=== PATIENT | female | born 1985 | race Caucasian/White ===

== ENCOUNTER 2024-11-03 13:23 | Inpatient (IN) | payer OTHER ==
[2024-11-03] VITALS (25 sets, daily range): BP systolic 126–154; BP diastolic 80–103
[~2024-11-03] VITALS: Ht 170.2 cm; Wt 66.1 kg
[2024-11-03] MEDS ORDERED: LABE100 PO (13:49)
[2024-11-03 14:19] LABS: BASOPHILS PERCENT AUTO 1 % (0-2); EOSINOPHILS ABSOLUTE AUTO 0.06 K/mm3 (0.00-0.68); EOSINOPHILS PERCENT AUTO 1 % (0-6); IMMATURE GRAN ABSOLUTE AUTO 0.03 K/mm3 (0.00-0.10); IMMATURE GRAN PERCENT AUTO 0 % (0-1); LYMPHOCYTES ABSOLUTE AUTO 1.34 K/mm3 (0.84-5.20); LYMPHOCYTES PERCENT AUTO 14 % (21-46); MONOCYTES ABSOLUTE AUTO 0.86 K/mm3 (0.16-1.47); MONOCYTES PERCENT AUTO 9 % (4-13); Mean Corpuscular HGB 29.8 pg (26.0-34.0); Mean Corpuscular HGB Conc 34.3 g/dL (31.5-36.5); Mean Corpuscular Volume 87 fL (80-100); Mean Platelet Volume 10.9 fL (9.1-12.4); NEUTROPHILS PERCENT AUTO 75 % (41-73); Platelet Count 386 K/mm3 (150-400); RDW Coefficient Variation 14.3 % (11.7-14.2); RDW Standard Deviation 44.1 fL (35.1-46.3); Red Blood Cell Count 4.03 M/mm3 (3.80-5.20); White Blood Cell Count 9.69 K/mm3 (4.00-11.30)
[2024-11-03 14:43] LABS: Albumin, Blood 2.4 g/dL (3.4-5.0); Albumin/Globulin Ratio 0.7 (0.8-1.8); Bilirubin, Total 0.5 mg/dL (0.1-1.0); Bun/Creatinine Ratio 11.9 (12.0-20.0); Calcium, Blood 8.6 mg/dL (8.5-10.1); Creatinine, Blood 3.52 mg/dL (0.40-1.00); Globulin, Blood 3.3 g/dL (2.2-4.0); Potassium, Blood 4.4 mmol/L (3.5-5.5); Total Protein, Blood 5.7 g/dL (6.4-8.2)
[2024-11-03] MEDS ORDERED: NS 1,000 ML IV SCH (14:50)
[2024-11-03] MEDS ORDERED: CefTRIAXone Sodium 1,000 MG in NS 100 ML IV ONE (15:00)
[2024-11-03] MEDS ORDERED: FLU VACC TS2024-25(6MOS UP)/PF 45 MCG/0.5 ML SYRINGE IM SCH (15:55)
[2024-11-03] MEDS ORDERED: Labetalol HCL 5 MG/ML 4ML Injection (Single Dose) IV ONE (16:00)
[2024-11-03] MEDS ORDERED: Labetalol HCL 5 MG/ML 20MLVIAL IV PRN (16:10)
[2024-11-03] MEDS ORDERED: HydrALAZINE HCl 20 MG / ML 1ML Vial IV PRN ×2 (16:15→20:00)
[2024-11-03] MEDS ORDERED: Labetalol HCL 5 MG/ML 4ML Injection (Single Dose) IV PRN (16:20)
[2024-11-03] MEDS ORDERED: NiCARdipine HCL 50 MG in NS 250 ML IV SCH (16:35)
[2024-11-03] MEDS ORDERED: Clopidogrel Bisulfate 300 MG TABLET PO ONE (16:55)
[2024-11-03] MEDS ORDERED: Carvedilol 3.125 MG Tab PO SCH (17:00)
[2024-11-03] MEDS ORDERED: Aspirin 325 MG Tab PO ONE (17:00)
[2024-11-03] MEDS ORDERED: Atorvastatin 40 MG Tab PO SCH (17:00)
[2024-11-03] MEDS ORDERED: Azithromycin 500 MG in NS 250 ML IV SCH (17:00)
[2024-11-03 17:06] LABS: Base Excess Venous -7.9 mmol/L; Bicarbonate Venous 19.1 mmol/L (24.0-30.0); PCO2 Venous 25.8 mmHg (38-42); pH Blood Venous 7.42 (7.34-7.37)
[2024-11-03 18:11] LABS: Anti-Xa UFH, PHA Monitoring <0.10 IU/mL; International Normalized Ratio 0.98; Prothrombin Time Results 10.5 Sec (9.7-11.5)
--- NOTE | 2024-11-03 18:30 | NUR ---
[place] of care: Received patient from ED. Alert & oriented. Complaining of back pain of 10 - prn roxicodone ordered & administered. In NSR. SBP in 150s on 7.5 mg/hr of nicardipine. On room air with stable oxygen saturations. Need sputum sample. Pt aware but denies productive cough. Voided 350 clear yellow urine on arrival. Sample sent to lab. Will then start 24 hour urine sample per orders. NPO. Skin intact other than redness to lower back that is blanchable. PIV x2 in place. Will continue to monitor.
[2024-11-03] MEDS ORDERED: OxyCODONE HCL 5 MG TAB PO PRN (18:35)
[2024-11-03] MEDS ORDERED: Acetaminophen 325 MG TABLET PO PRN (18:35)
[2024-11-03 18:37] LABS: Source, Urine Clean Catch
[2024-11-03 18:39] LABS: Appearance, Urine Clear (Clear); Bilirubin, Urine Neg (Neg); Blood, Urine 1+ (Neg); Color, Urine Yellow (P-Yellow); Glucose Qualitative, Urine Neg (Neg); Ketones, Urine Neg (Neg); Leukocyte Esterase, Urine Neg (Neg); Nitrite, Urine Neg (Neg); Protein, Urine 4+ (Neg); Specific Gravity, Urine 1.015 (1.003-1.022); Urobilinogen, Urine NORM (Normal)
[2024-11-03] MEDS ORDERED: Bumetanide 0.25 MG/ML 10ML Vial IV ONE (18:40)
[2024-11-03 18:51] LABS: Bacteria Few /hpf; Squamous Epithelial Cells Few /hpf (Few); White Blood Cells, Urine 0-2 /hpf (0-5)
[2024-11-03 18:58] LABS: U Amphetamine Screen Not Detected; U Barbituate Screen Not Detected; U Benzodiazapine Screen Not Detected; U Buprenorphine Screen Not Detected; U Cannabinoids Screen Not Detected; U Cocaine Screen Not Detected; U Methadone Screen Not Detected; U Methamphetamine Screen Not Detected; U Opiates Screen Not Detected; U Oxycodone Screen Not Detected; U Phencyclidine Screen Not Detected
[2024-11-03] MEDS ORDERED: Lactobacil 2-S.Thermo-Bifido 1 1 Cap PO SCH (21:00)
[2024-11-03] MEDS ORDERED: Sodium Bicarbonate 650 MG Tab PO SCH (21:00)
[2024-11-03] MEDS ORDERED: CloNIDine 0.1 MG Tab PO SCH (21:00)
[2024-11-03 21:14] LABS: Bun/Creatinine Ratio 11.5 (12.0-20.0); Calcium, Blood 8.3 mg/dL (8.5-10.1); Creatinine, Blood 3.49 mg/dL (0.40-1.00); Potassium, Blood 3.7 mmol/L (3.5-5.5)
--- NOTE | 2024-11-03 22:14 | NUR ---
[place] OF CARE ASSUMED CARE OF PATIENT AT 1900, BEDSIDE SHIFT REPORT RECEIVED FROM LUIZ RN. PT RESTING IN BED, ALERT AND ORIENTED. PT ANSWERS QUESTIONS APPROPRIATLEY, FOLLOWS DIRECTION WHEN PROMPTED AND IS ABLE TO MAKE HER NEEDS KNOWN. PT AMBULATES TO BEDSIDE COMMODE TO VOID WITH NURSE ASSIST. PT WEAK. MOVES EXTREMITIES EQUALLY BILATERALLY. PT COMPLAINING OF 5/10 PAIN IN HER BACK, STATES ITS IMPROVED. HR 70-90'S SINUS, MAP >65. NICARDIPINE INFUSING AT 7.5MG/HR AT START OF SHIFT, NOW ON SB, SEE FLOWSHEET FOR TITRATIONS. SBP GOAL OF 160-[address] GRACIA. CURRENT SBP 120-140'S. PT DENIES CP/PRESSURE. PT ON RA, OXYGEN SATURATION >95%. ABDOMEN SOFT, BOWEL TONES ACTIVE THROUGHOUT, PT DENIES N/V. PT AMBULATES TO COMMODE TO VOID. PIV IN PLACE TO RFA AND LAC SL. BED IN LOWEST POSIITON, CALL LIGHT WITHIN REACH, CARE CONTINUES.
[2024-11-04] VITALS (46 sets, daily range): BP systolic 124–176; BP diastolic 74–133
[2024-11-04 03:44] LABS: BASOPHILS ABSOLUTE AUTO 0.09 K/mm3 (0.00-0.23); BASOPHILS PERCENT AUTO 1 % (0-2); EOSINOPHILS ABSOLUTE AUTO 0.29 K/mm3 (0.00-0.68); EOSINOPHILS PERCENT AUTO 4 % (0-6); Hematocrit 31.5 % (33.0-51.0); Hemoglobin 10.4 g/dL (11.5-16.0); IMMATURE GRAN ABSOLUTE AUTO 0.02 K/mm3 (0.00-0.10); IMMATURE GRAN PERCENT AUTO 0 % (0-1); LYMPHOCYTES ABSOLUTE AUTO 1.47 K/mm3 (0.84-5.20); LYMPHOCYTES PERCENT AUTO 22 % (21-46); MONOCYTES PERCENT AUTO 12 % (4-13); Mean Corpuscular HGB 29.4 pg (26.0-34.0); Mean Corpuscular Volume 89 fL (80-100); Mean Platelet Volume 10.8 fL (9.1-12.4); NEUTROPHILS ABSOLUTE AUTO 4.12 K/mm3 (1.96-9.15); NEUTROPHILS PERCENT AUTO 61 % (41-73); Platelet Count 317 K/mm3 (150-400); RDW Coefficient Variation 14.1 % (11.7-14.2); RDW Standard Deviation 45.4 fL (35.1-46.3); Red Blood Cell Count 3.54 M/mm3 (3.80-5.20); White Blood Cell Count 6.79 K/mm3 (4.00-11.30)
[2024-11-04 04:11] LABS: Magnesium, Blood 1.8 mg/dL (1.6-2.4); Uric Acid, Blood 9.6 mg/dL (2.6-6.0)
[2024-11-04 04:17] LABS: Alanine Aminotransfer (ALT/SGP 22 U/L (12-78); Albumin/Globulin Ratio 0.7 (0.8-1.8); Alk Phos 59 U/L (50-136); Anion Gap 10 mmol/L (3-11); Aspartate Aminotrans (AST/SGOT 21 U/L (12-37); Bilirubin, Direct <0.1 mg/dL (0.0-0.3); Bilirubin, Indirect Unable to Calculate mg/dL (0.1-0.7); Bilirubin, Total 0.2 mg/dL (0.1-1.0); Blood Urea Nitrogen 39 mg/dL (8-24); Bun/Creatinine Ratio 11.2 (12.0-20.0); CO2, Blood 23 mmol/L (21-32); Calcium, Blood 7.7 mg/dL (8.5-10.1); Chloride, Blood 105 mmol/L (98-108); Creatinine, Blood 3.49 mg/dL (0.40-1.00); Globulin, Blood 2.7 g/dL (2.2-4.0); Glomerular Filtration Rate 16 (60-); Glucose, Blood 112 mg/dL (70-99); Phosphorus, Blood 5.4 mg/dL (2.5-4.9); Potassium, Blood 3.4 mmol/L (3.5-5.5); Sodium, Blood 135 mmol/L (136-145); Total Protein, Blood 4.7 g/dL (6.4-8.2)
[2024-11-04] MEDS ORDERED: Potassium Chloride 10 Meq Tablet SA PO ONE (04:50)
--- NOTE | 2024-11-04 06:14 | NUR ---
SHIFT SUMMARY NO ACUTE CHANGES THIS SHIFT. PT CONITNUES TO REST IN BED, SLEEPING BUT AROUSABLE. PT ORIENTED X4, ANSWERS QUESTIONS APPROPRIATELY, FOLLOWS DIRECTION WHEN PROMPTED AND IS ABLE TO MAKE HER NEEDS KNOWN. PT MOVES EXTREMITIES EQUALLY BILATERALLY, AMBULATES TO BEDSIDE COMMODE TO VOID WITH NURSE ASSIST. PT COMPLAINING OF PAIN IN HER BACK AND RIGHT SIDE, MEDCIATED PER EMAR WITH GOOD EFFECT. HR 60-90'S SINUS, SBP 120-160'S, NICARDIPINE HAS REMAINED OFF THIS SHIFT, SEE FLOWSHEET FOR TITRATIONS. PT DENIES CP/PRESSURE. PT PLACED ON 2LPM VIA NC WHILE SLEPING, OXYGEN SATURATION >95%. ABDOMEN SOFT, BOWEL TONES ACTUIVE THROUGHOUT. PT AMBULATES TO BEDSIDE COMMODE TO VOID, 24H URINE ONGOING. PIV IN PLACE TO RFA AND LAC SL. BED IN LOWEST POSITION, CALL LIGHT WITHIN REACH, CARE CONTINUES.
[2024-11-04] MEDS ORDERED: Heparin Sodium,Porcine 5,000 UNIT/0.5 ML SDV SC SCH (08:00)
--- NOTE | 2024-11-04 08:00 | NUR ---
[place] of care: Alert & oriented. In NSR. Targeting SBP between 160-[address] 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 On room air with clear lung sounds & stable O2 sats. Good PO intake. Voiding. PIV x2 in place. Will continue to monitor.
[2024-11-04] MEDS ORDERED: CefTRIAXone Sodium 1,000 MG in NS 100 ML IV SCH (09:00)
[2024-11-04] MEDS ORDERED: Bumetanide 1 MG Tab PO SCH (09:00)
[2024-11-04] MEDS ORDERED: Aspirin 81 MG Chew PO SCH (09:00)
[2024-11-04] MEDS ORDERED: Potassium Chloride 10 Meq Tablet SA PO SCH (09:00)
[2024-11-04] MEDS ORDERED: Bumetanide 0.25 MG/ML 4ML ViaL IV SCH (09:00)
[2024-11-04] MEDS ORDERED: Enoxaparin 30 MG/0.3 ML SYR SC SCH (09:00)
[2024-11-04] MEDS ORDERED: Clopidogrel Bisulfate 75 MG Tab PO SCH (09:00)
[2024-11-04] MEDS ORDERED: Heparin Sodium 5000 Units/ML 1ML MDV IV ONE ×2 (11:50→20:10)
[2024-11-04] MEDS ORDERED: Heparin Sodium,Porcine/0.5 NS 500 ML IV SCH (11:50)
--- NOTE | 2024-11-04 18:06 | NUR ---
Shift summary: Remains A&O. In NSR. SBP between 160-[address] Schneider's orders but DBP has been elevated above [address] Petty & he states he will add something prn. On room air with clear lung sounds. Voided 1200 cc. No BM. Taking good PO. PIV x2. Heparin gtt infusing - see emar for details. Will continue to monitor.
[2024-11-04] MEDS ORDERED: HydrALAZINE HCl 20 MG / ML 1ML Vial IV PRN (18:20)
[2024-11-04] MEDS ORDERED: Dose Adjust by Pharmacy XX STA (20:09)
[2024-11-04] MEDS ORDERED: Labetalol HCL 100 MG TAB PO SCH ×2 (21:00)
[2024-11-04 22:07] LABS: Protein, Urine Quantitative 105.4 mg/dL (0.0-11.9)
[2024-11-05] VITALS (12 sets, daily range): BP systolic 146–185; BP diastolic 100–128
[2024-11-05 02:44] LABS: BASOPHILS ABSOLUTE AUTO 0.07 K/mm3 (0.00-0.23); BASOPHILS PERCENT AUTO 1 % (0-2); EOSINOPHILS ABSOLUTE AUTO 0.58 K/mm3 (0.00-0.68); EOSINOPHILS PERCENT AUTO 8 % (0-6); Hemoglobin 10.4 g/dL (11.5-16.0); IMMATURE GRAN ABSOLUTE AUTO 0.02 K/mm3 (0.00-0.10); IMMATURE GRAN PERCENT AUTO 0 % (0-1); LYMPHOCYTES ABSOLUTE AUTO 1.83 K/mm3 (0.84-5.20); LYMPHOCYTES PERCENT AUTO 24 % (21-46); MONOCYTES ABSOLUTE AUTO 0.87 K/mm3 (0.16-1.47); MONOCYTES PERCENT AUTO 11 % (4-13); Mean Corpuscular HGB 29.3 pg (26.0-34.0); Mean Corpuscular HGB Conc 32.5 g/dL (31.5-36.5); Mean Corpuscular Volume 90 fL (80-100); Mean Platelet Volume 10.8 fL (9.1-12.4); NEUTROPHILS ABSOLUTE AUTO 4.32 K/mm3 (1.96-9.15); NEUTROPHILS PERCENT AUTO 56 % (41-73); Platelet Count 275 K/mm3 (150-400); RDW Coefficient Variation 14.3 % (11.7-14.2); RDW Standard Deviation 46.5 fL (35.1-46.3); Red Blood Cell Count 3.55 M/mm3 (3.80-5.20); White Blood Cell Count 7.69 K/mm3 (4.00-11.30)
[2024-11-05 02:58] LABS: Creatinine, Blood 3.45 mg/dL (0.40-1.00)
[2024-11-05] MEDS ORDERED: Dose Adjust by Pharmacy XX STA ×2 (03:52→10:43)
--- NOTE | 2024-11-05 05:46 | NUR ---
SHIFT SUMMARY PT HAD UNEVENFUL NIGHT. A/OX4, CALLS APPROPRIATLY. ON ROOM AIR, SATS >92%. HR 60-70'S, HYPERTENSIVE AT BASELINE, SBP GOAL OF 160-170, GAVE ONE DOSE OF PRN HYDRALAZINE THIS SHIFT FOR SBP OF 185. 24 H URINE FINISHED THIS SHIFT. HEPARIN INFUSING AT 17U/KG. PT AMBULATES TO COMMODE WITH NURSE ASSIST FOR CORD MANAGEMENT. CALL LIGHT IN REACH.
[2024-11-05] MEDS ORDERED: Bumetanide 0.25 MG/ML 4ML ViaL IV STA (08:44)
[2024-11-05] MEDS ORDERED: Bumetanide 1 MG Tab PO SCH (09:00)
[2024-11-05] MEDS ORDERED: Potassium Chloride 10 Meq Tablet SA PO SCH (09:00)
--- NOTE | 2024-11-05 11:11 | NUR ---
THIS RN ASSUMED CARE OF PT AT 0700. PT IS ALERT AND ORIENTED X4, CALLS OUT APPROPRIATELY. PT HEART RATE IN THE 70s, BLOOD PRESSURE HIGHER AT 169/103 MAP OF 124, SAID HE WANTS SBP <185, PRN MEDS ON EMAR, PT DENIES SHORTNESS OF BREATH. PT IS ON ROOM AIR SATTING >95%, PT DENIES SHORTNESS OF BREATH. PT IS ABLE TO VOID VIA BEDSIDE COMMODE. NO OTHER INTERVENTIONS AT THIS TIME. PLAN OF CARE CONTINUED.
--- NOTE | 2024-11-05 15:30 | NUR ---
PT UPDATE: PT WILL BE TRANSFERING TO PCU 04, PT VITAL SIGNS ARE HR:75, RR:17, SPO2: 99%, BP 165/126 MAP OF 139. TMPERATURE WAS 98.4. NO OTHER INTERVENTIONS AT THIS TIME. PT WAS ABLE TO SEE SON IN WAITING ROOM WITH CONTINUOUS CARDIAC MONITORING, WAS AWARE AND OKAY WITH DOING THIS. PLAN OF CARE CONTINUED.
--- NOTE | 2024-11-05 17:38 | NUR ---
ARRIVAL TO PCU 4 / SHIFT SUMMARY PT ARRIVED TO PCU 4 AT APPROXIMATELY 1600. PT TRANSFERED FROM WHEELCHAIR TO RECLINER WITH SBA. PT A&Ox4, CALLS AND COMMUNICATES NEEDS APPROPRIATELY. SISTER WITH PT DURING TRANSFER. PT ORIENTED TO CALL LIGHT/UNIT. BP ELEVATED THOUGH WITHIN PHYSICIAN'S PARAMETERS, SBP 160's. SINUS 80-90's, DENIES CP/PRESSURE. SpO2> 92% RA, DENIES SOB, C/O INTERMITTENT COUGH THAT PT REPORTS HAS BEEN GOING ON FOR ABOUT THREE MONTHS. C/O INTERMITTENT MILD PAIN IN RIBS SECONDARY TO COUGH. NO OTHER EVENTS, WILL REPORT TO ONCOMING RN.
[2024-11-05] MEDS ORDERED: Carvedilol 6.25 MG Tab PO SCH (20:00)
[2024-11-06] VITALS (7 sets, daily range): BP systolic 145–172; BP diastolic 96–120
--- NOTE | 2024-11-06 02:21 | NUR ---
SHIFT SUMMARY NEURO: A/OX4. MARTIN MUSCULOSKELETAL: PHYSICAL THERAPY CONSULTED FOR UNSTEADY GAIT. PT APPEARS TO BE WALKING ON THE OUTER SIDES OF THEIR FEET. GENERALIZED WEAKNESS BUT EQUAL STRENGTH. PT HAS DIFFICULTY MANAGING THE WEIGHT OF THEIR TELE BOX. CARDIAC: VERIFIED WITH NIGHT ATTENDING TO GIVE BP MEDS. SYSTOLIC NOW IN THE 140'S. BP PARAMETERS FROM 11/03 STATE 160-170'S. HR IN THE 70'S. +3 BLE. MELISSA HOSE AND SCD'S PLACED. HEPARIN GTT CONTINUES. LUNGS: DIMINISHED, NO CRACKLES HEARD. ON RA. SKIN: YELLOW/DRY HUE TO SKIN ON BUE.
[2024-11-06 04:19] LABS: Hematocrit 31.1 % (33.0-51.0); Hemoglobin 10.2 g/dL (11.5-16.0); Mean Platelet Volume 11.1 fL (9.1-12.4); Platelet Count 292 K/mm3 (150-400)
[2024-11-06 04:39] LABS: Magnesium, Blood 1.9 mg/dL (1.6-2.4)
[2024-11-06 04:40] LABS: Albumin, Blood 1.9 g/dL (3.4-5.0); Anion Gap 11 mmol/L (3-11); Blood Urea Nitrogen 46 mg/dL (8-24); CO2, Blood 23 mmol/L (21-32); Calcium, Blood 8.1 mg/dL (8.5-10.1); Chloride, Blood 106 mmol/L (98-108); Creatinine, Blood 3.29 mg/dL (0.40-1.00); Glomerular Filtration Rate 18 (60-); Glucose, Blood 100 mg/dL (70-99); Phosphorus, Blood 5.8 mg/dL (2.5-4.9); Potassium, Blood 3.8 mmol/L (3.5-5.5); Sodium, Blood 136 mmol/L (136-145)
[2024-11-06 07:17] LABS: ANTI-NUCLEAR AB ANA,IGG ELISA None Detected (None Detected)
[2024-11-06 07:45] LABS: ALDOSTERONE/RENINACTIVITY CALC 39.7 ratio (<=25.0)
[2024-11-06] MEDS ORDERED: AmLODIPine Besylate 5 MG Tab PO SCH (13:00)
[2024-11-06] MEDS ORDERED: Bumetanide 0.25 MG/ML 4ML ViaL IV SCH (13:00)
[2024-11-06] MEDS ORDERED: Carvedilol 25 MG Tab PO SCH (17:00)
[2024-11-06] MEDS ORDERED: Calcium Acetate 667 MG Gel Cap PO SCH (17:30)
--- NOTE | 2024-11-06 18:11 | NUR ---
SHIFT SUMMARY: NEURO: PATIENT ALERT AND ORIENTED X4. PATIENT DOES BENEFIT FROM SIMPLE EXPLANATIONS AND REPETITION OF INFORMATION THROUGHOUT THE SHIFT. PATIENT IS HESITANT TO MAKE REQUESTS AT TIMES. PATIENT MEDICATED FOR PAIN OF THE RIBS DURING THE SHIFT. PATIENT DENIES NUMBNESS/TINGLING. PATIENT AMBULATES SLOWLY AND STEADILY RELATED TO HISTORY OF CLUB FOOT. PT EVALUATION COMPLETED THIS AM. CARDIAC: PATIENT CONTINUES TO HAVE ELEVATED BLOOD PRESSURES WITH SBP 160-170S. PATIENT TOLERATED CHANGES TO BLOOD PRESSURE MEDICATIONS. MINIMAL IMPROVEMENT IN BLOOD PRESSURES NOTED. PATIENT DENIES CHEST PRESSURE OR PAIN. HR IN THE 70S. RESPIRATORY: PATIENT CONTINUES TO BE STABLE ON ROOM AIR WITH SPO2 100%. PATIENT DENIES SHORTNESS OF BREATH OR DIFFICULTY BREATHING. NO SHORTNESS OF BREATH NOTED WITH ACTIVITY. GI/: PATIENT TOLERATING PO INTAKE WITHOUT NAUSEA OR ABDOMINAL DISCOMFORT. PATIENT TOLERATING FLUID RESTRICTION WITH HELP OF STAFF. PATIENT VOIDING CLEAR, LIGHT YELLOW URINE. NO FOUL ODOR NOTED. PSYCHSOCIAL: PATIENT CALM AND COOPERATIVE. PATIENT VISITED BY HER SISTER THIS EVENING.
[2024-11-06 18:25] LABS: GBM, IGG MULTIPLEX BEAD ASSAY 0 AU/mL (0-19); MYELOPEROXIDASE (MPO) AB,IGG 0 AU/mL (0-19); SERINE PROTEINASE 3 PR3 AB,IGG 0 AU/mL (0-19)
[2024-11-06 21:58] LABS: ANTINUCLEAR AB (ANA),HEP-2,IGG <1:80 (<1:80)
[2024-11-07] VITALS (9 sets, daily range): BP systolic 145–172; BP diastolic 89–120
[2024-11-07 03:40] LABS: Hematocrit 32.3 % (33.0-51.0); Hemoglobin 10.4 g/dL (11.5-16.0)
[2024-11-07 03:58] LABS: Albumin, Blood 2.1 g/dL (3.4-5.0); Anion Gap 8 mmol/L (3-11); Blood Urea Nitrogen 45 mg/dL (8-24); Bun/Creatinine Ratio 13.4 (12.0-20.0); CO2, Blood 26 mmol/L (21-32); Calcium, Blood 8.4 mg/dL (8.5-10.1); Chloride, Blood 108 mmol/L (98-108); Creatinine, Blood 3.35 mg/dL (0.40-1.00); Glomerular Filtration Rate 17 (60-); Glucose, Blood 110 mg/dL (70-99); Magnesium, Blood 1.9 mg/dL (1.6-2.4); Phosphorus, Blood 5.9 mg/dL (2.5-4.9); Potassium, Blood 4.1 mmol/L (3.5-5.5); Sodium, Blood 138 mmol/L (136-145)
[2024-11-07] MEDS ORDERED: Dose Adjust by Pharmacy XX STA (05:03)
--- NOTE | 2024-11-07 06:30 | NUR ---
PT STABLE THROUGHOUT SHIFT. PT REMAINS HTN BUT BELOW PARAMETERS FOR ANY PRN MEDS. NO NEURO CHANGES, NO CHEST/DYSPNEA NOTED. PT AOX4, INDEPENDENT IN ROOM, AMBULATES TO BATHROOM SAFELY. PT ABLE TO USE CALL LIGHT AND MAKE NEEDS KNOWN. OTHER VITAL SIGNS REMAIN WNL. PT CONTINUES TO TOLERATE HEPARIN INFUSION, NO S/S BLEEDING/BRUISING. PT HAS HAD GOOD URINARY OUTPUT, CLEAR, PALE YELLOW URINE. MELISSA HOSE B/L LEGS IN PLACE.
[2024-11-07] MEDS ORDERED: Apixaban 5 MG Tab PO SCH (07:00)
[2024-11-07] MEDS ORDERED: AmLODIPine Besylate 5 MG Tab PO SCH (09:00)
--- NOTE | 2024-11-07 17:39 | NUR ---
PT SUMMARY; PT TO TRANSFER TO MEDICAL FLOOR RM 310 REPORT GIVEN TO TIM RUCKER. NO ACUTE CHANGE FOR THE SHIFT, PT HAS BEEN INDEPENDENT IN THE ROOM VITALS HRR SR 90'S, SBP 140-160'S, SATS ABOVE 95% ON RA, AFEBRILE. PT HAS BEEN GETTING PAIN MEDS Q4 HRS FOR RIB PAIN. PT TRANSITIONED FROM HEP GTT TO ELIQUIS THIS MORNING. REPEAT CHEST XRAY WAS DONE, MADE AWARE OF THE RESULT, AWAITING ORDERS AT THIS TIME. [facility] ALL BELONGINGS SENT WITH THE PT. NO OTHER ISSUES AT THIS TIME.
--- NOTE | 2024-11-07 17:54 | NUR ---
SHIFT SUMMARY PT ARRIVED TO MEDICAL FLOOR AT APPROX. 1750. SHE IS ALERT AND ORIENTED X 4, VSS, SHE IS ON RA AND SPO2 IS >95%. SHE DENIES FEELINGS OF CHEST PAIN/PRESSURE, SOB OR LIGHTHEADEDNESS/DIZZINESS. SHE DENIES FEELINGS OF NAUSEA. SHE IS INDEPENDENT IN THE ROOM. IV'S IN L ARM FLUSH EASILY. FLUID RESTRICTION NOTED PER EMAR ORDERS. CALL LIGHT IS W/IN REACH.
[2024-11-07] MEDS ORDERED: LORazepam 2 MG/ML 1ML Injection IV ONE (21:45)
[2024-11-08 03:46] VITALS: BP 152/100; BP 165/107
[2024-11-08 04:49] LABS: Hematocrit 30.7 % (33.0-51.0)
[2024-11-08 05:09] LABS: Anion Gap 9 mmol/L (3-11); Blood Urea Nitrogen 43 mg/dL (8-24); Bun/Creatinine Ratio 12.6 (12.0-20.0); CO2, Blood 26 mmol/L (21-32); Calcium, Blood 8.6 mg/dL (8.5-10.1); Chloride, Blood 107 mmol/L (98-108); Glomerular Filtration Rate 17 (60-); Glucose, Blood 96 mg/dL (70-99); Magnesium, Blood 2.1 mg/dL (1.6-2.4); Phosphorus, Blood 5.8 mg/dL (2.5-4.9); Potassium, Blood 4.4 mmol/L (3.5-5.5); Sodium, Blood 138 mmol/L (136-145)
--- NOTE | 2024-11-08 05:23 | NUR ---
SHIFT SUMMARY PATIENT IS ALERT AND ORIENTED. PATIENT HAS HAD NO ACUTE EVENTS THIS SHIFT. VITAL SIGNS REVIEWE. PATIENT HAS BEEN ON RA. PATIENT HAS HAD EPISODE OF NAUSEA AND MEDICATED PER EMAR. PATIENT HAS REPORTED PAIN AND MEDICATED PER EMAR. PATIENT HAS HAD NO COMPLAINTS OF SOB OR VOMITTING THIS SHIFT. BP REMAINS ELEVATED BUT STABLE. PATIENT REPORTS NO CHEST PAIN/PRESSURE. BED IN LOCKED AND LOWEST POSITION. CALL LIGHT IN PLACE.
[2024-11-08 07:35] VITALS: BP 162/103
[2024-11-08] MEDS ORDERED: Carvedilol 25 MG Tab PO SCH (08:00)
[2024-11-08] MEDS ORDERED: AmLODIPine Besylate 5 MG Tab PO SCH (09:00)
[2024-11-08] MEDS ORDERED: CloNIDine HCl 0.2 MG Tab PO SCH (09:00)
[2024-11-08] MEDS ORDERED: Bumetanide 1 MG Tab PO SCH (09:00)
[2024-11-08 10:10] VITALS: BP 153/97
[2024-11-08 11:22] LABS: CREATININE,URINE - PER 24H 990 mg/d (700-1600); CREATININE,URINE - PER VOLUME 33 mg/dL; HOURS COLLECTED 24 hr; METANEPHRINE,UR - RATIO TO CRT 145 ug/g CRT (0-300); METANEPHRINE,URINE - PER 24H 144 ug/d (36-229); METANEPHRINE,URN - PER VOLUME 48 ug/L; NORMETANEPHRINE,U - PER VOLUME 301 ug/L; NORMETANEPHRINE,URN - PER 24H 903 ug/d (95-650); NORMETANEPHRINE,URN/CRT RATIO 912 ug/g CRT (0-400); TOTAL VOLUME 3000 mL
[2024-11-08] MEDS ORDERED: CARV25 PO (14:00)
[2024-11-08] MEDS ORDERED: AMLO5 PO (14:00)
[2024-11-08] MEDS ORDERED: BUME2 PO (14:01)
[2024-11-08] MEDS ORDERED: Calcium Acetat667 MG PO (14:01)
[2024-11-08] MEDS ORDERED: ELIQUIS5 M2 PO (14:01)
[2024-11-08] MEDS ORDERED: OXYC5 PO (14:02)
[2024-11-08] MEDS ORDERED: CATAPRES0.2 M1 PO (14:02)
[2024-11-08] MEDS ORDERED: POTA10T PO (14:03)
[2024-11-08] MEDS ORDERED: SODBIC650 PO (14:03)
--- NOTE | 2024-11-08 15:33 | NUR ---
DISCHARGE: PT D/C @ 1520 VIA WHEELCHAIR WITH FRIEND. MEDICATIONS FAXED TO [facility]. PT AWARE SHE NEEDS TO MAKE FOLLOW-UP APPOINTMENTS WITH DR. DEL RIO AND DR. GRACIA. PT AWARE TO KEEP BLOOD PRESSURE LOG FOR FOLLOW-UP APPOINTMENTS. HARD SCRIPT FOR OXY SENT WITH PT. NO QUESTIONS AT TIME OF D/C.
[2024-11-08 17:57] LABS: CREATININE, URINE - PER 24H 990 mg/d (700-1600); CREATININE, URINE - PER VOLUME 33 mg/dL; HOURS COLLECTED 24 hr; TOTAL VOLUME 3000 mL; VANILLYLMANDELIC ACID -PER 24H 6.6 mg/d (0.0-7.0); VANILLYLMANDELIC ACID -PER VOL 2.2 mg/L; VANILLYLMANDELIC ACID -RAT CRT 7 mg/gCR (0-6)
== END 2024-11-08 15:15 | disposition home or self-care (01) | DRG 281 ==
LOC: ER 13:23 → MEDS 15:54 → ICUE 15:54 → ERHOLD 15:54 → ICUE 17:49 → PCU 11-05 16:04 → MEDS 11-07 17:46
PROVIDERS: Internal Medicine Interventional Cardiology; Internal Medicine Nephrology; Student in an Organized Health Care Education/Training Program; ADMIT Hospitalist
DX: I16.1 Hypertensive emergency (principal); E87.1 Hypo-osmolality and hyponatremia; I21.A1 Myocardial infarction type 2; E87.20 Acidosis, unspecified; N17.9 Acute kidney failure, unspecified; I50.20 Unspecified systolic (congestive) heart failure; I42.9 Cardiomyopathy, unspecified; N18.9 Chronic kidney disease, unspecified; I13.0 Hypertensive heart and chronic kidney disease with heart failure and stage 1 through stage 4 chronic kidney disease, or unspecified chronic kidney disease; I51.3 Intracardiac thrombosis, not elsewhere classified; E88.09 Other disorders of plasma-protein metabolism, not elsewhere classified; E87.6 Hypokalemia; E83.39 Other disorders of phosphorus metabolism; Z87.01 Personal history of pneumonia (recurrent); Z79.899 Other long term (current) drug therapy; D63.1 Anemia in chronic kidney disease
CPT/HCPCS: 36415; 71045; 71046; 71250; 76770; 80048; 80053; 80069; 81001; 81025; 81050; 82088; 82248; 82533; 82550; 82803; 83516; 83605; 83690; 83735; 83835; 83880; 84100; 84145; 84156; 84244; 84443; 84484; 84550; 84585; 85014; 85018; 85025; 85049; 85520; 85610; 85730; 86038; 86039; 86334; 86335; 87040; 93005; 93010; 93975; 94762; 96361; 96365; 97112; 97161; 99285-25; A9270; C8929; J0360; J0456; J0696; J1644; J2060; J7030; J7050; Q9957

== ENCOUNTER 2025-03-19 11:57 | Inpatient (IN) | payer OTHER ==
[~2025-03-19] VITALS: Ht 170.2 cm; Wt 63.5 kg
[~2025-03-19 11:57] MED LIST: AMLO5 PO; BUME2 PO; CARV25 PO; CATAPRES0.2 M1 PO; Calcium Acetat667 MG PO; ELIQUIS5 M2 PO; LABE100 PO; OXYC5 PO; POTA10T PO; SODBIC650 PO
[2025-03-19 12:52] LABS: BASOPHILS ABSOLUTE AUTO 0.10 K/mm3 (0.00-0.23); BASOPHILS PERCENT AUTO 1 % (0-2); EOSINOPHILS ABSOLUTE AUTO 0.54 K/mm3 (0.00-0.68); EOSINOPHILS PERCENT AUTO 7 % (0-6); Hematocrit 18.6 % (33.0-51.0); Hemoglobin 6.1 g/dL (11.5-16.0); IMMATURE GRAN ABSOLUTE AUTO 0.02 K/mm3 (0.00-0.10); IMMATURE GRAN PERCENT AUTO 0 % (0-1); LYMPHOCYTES ABSOLUTE AUTO 1.64 K/mm3 (0.84-5.20); LYMPHOCYTES PERCENT AUTO 22 % (21-46); MONOCYTES ABSOLUTE AUTO 0.64 K/mm3 (0.16-1.47); MONOCYTES PERCENT AUTO 8 % (4-13); Mean Corpuscular HGB Conc 32.8 g/dL (31.5-36.5); Mean Corpuscular Volume 89 fL (80-100); NEUTROPHILS ABSOLUTE AUTO 4.66 K/mm3 (1.96-9.15); NEUTROPHILS PERCENT AUTO 61 % (41-73); NRBC ABSOLUTE 0.00 K/mm3 (0.00-0.02); NRBC Auto 0.0 /100 WBC (0.0-0.2); Platelet Count 401 K/mm3 (150-400); RDW Coefficient Variation 12.9 % (11.7-14.2); RDW Standard Deviation 41.4 fL (35.1-46.3)
[2025-03-19 13:23] LABS: Alanine Aminotransfer (ALT/SGP 14.0 U/L (12-78); Albumin, Blood 2.9 g/dL (3.4-5.0); Albumin/Globulin Ratio 0.8 (0.8-1.8); Anion Gap 13.0 mmol/L (3-11); Aspartate Aminotrans (AST/SGOT 18.0 U/L (12-37); Bilirubin, Total 0.4 mg/dL (0.1-1.0); Blood Urea Nitrogen 51.0 mg/dL (8-24); CO2, Blood 24.0 mmol/L (21-32); Calcium, Blood 7.3 mg/dL (8.5-10.1); Chloride, Blood 103.0 mmol/L (98-108); Creatinine, Blood 7.72 mg/dL (0.40-1.00); Globulin, Blood 3.6 g/dL (2.2-4.0); Glucose, Blood 113.0 mg/dL (70-99); Magnesium, Blood 2.4 mg/dL (1.6-2.4); Phosphorus, Blood 7.6 mg/dL (2.5-4.9); Potassium, Blood 4.7 mmol/L (3.5-5.5); Sodium, Blood 135.0 mmol/L (136-145); Total Protein, Blood 6.5 g/dL (6.4-8.2)
[2025-03-19] MEDS ORDERED: NS 1,000 ML IV ONE (19:38)
[2025-03-19 21:54] VITALS: BP 176/101
[2025-03-19 22:32] VITALS: BP 167/97
--- NOTE | 2025-03-19 22:55 | NUR ---
NURSE NOTE PATIENT IS ADMITTED AND ORIENTED TO ROOM. MOTHER ACCOMPANIED PATIENT. FIRST UNIT OF BLOOD HAS BEEN TRANSFUSED. BLOOD SLIP SENT TO LAB AWAITING SECOND UNIT. NO REACTION NOTATED.
[2025-03-19] MEDS ORDERED: Darbepoetin (Pharmacy Consult) SC SCH (23:55)
[2025-03-20] VITALS (20 sets, daily range): BP systolic 100–1234; BP diastolic 53–111
--- NOTE | 2025-03-20 03:18 | NUR ---
NURSE NOTE PATIENT RECEIVED 2ND UNIT OF PRBC. PATIENT HAS HAD NO REACTION OR ADVERSE EVENTS TO BLOOD TRANSFUSION. VITALS TAKEN AND HAVE IMPROVED SINCE ADMIT.
--- NOTE | 2025-03-20 05:17 | NUR ---
SHIFT SUMMARY PATIENT IS ALERT AND ORIENTED. PATIENT HAS BEEN ADMITTED THIS SHIFT. PATIENT HAS HAD NO ACUTE EVENTS THIS SHIFT. PATIENT HAS RECEIVED TWO UNITS OF PRBCS BETWEEN ED AND ON THIS FLOOR. PATIENT HAS TOLERATED PRBCS WELL. PATIENT HAS HAD NO COMPLAINTS OF SOB, NAUSEA, VOMITTING OR PAIN THIS SHIFT. CONSULT WITH SH[facility] HAS BEEN CALLED FOR PERMACATH PLACEMENT. BASIL HAS BEEN CONSULTED. BED IN LOCKED AND LOWEST POSITION. CALL LIGHT IN PLACE.
[2025-03-20 05:32] LABS: Hematocrit 19.8 % (33.0-51.0); Hemoglobin 6.9 g/dL (11.5-16.0)
--- NOTE | 2025-03-20 06:04 | NUR ---
NURSE NOTE LAB RESULT FOR HGB CAME BACK AT 6.9 FROM 6.[address] STONE WAS NOTIFIED AND RECEIVED ORDER FOR ONE ADDITIONAL UNIT THEN RECHECK TWO HRS AFTER INFUSING.
[2025-03-20 06:16] LABS: Ferritin, Serum 63 ng/mL (8-252); Magnesium, Blood 2.5 mg/dL (1.6-2.4); Total Iron Binding Capacity 180 ug/dL (250-450)
[2025-03-20] MEDS ORDERED: NS 500 ML IV SCH (06:20)
[2025-03-20 06:29] LABS: Albumin, Blood 2.5 g/dL (3.4-5.0); Anion Gap 11 mmol/L (3-11); Blood Urea Nitrogen 50 mg/dL (8-24); CO2, Blood 25 mmol/L (21-32); Calcium, Blood 7.1 mg/dL (8.5-10.1); Chloride, Blood 105 mmol/L (98-108); Creatinine, Blood 7.95 mg/dL (0.40-1.00); Glucose, Blood 92 mg/dL (70-99); Phosphorus, Blood 7.5 mg/dL (2.5-4.9); Potassium, Blood 4.2 mmol/L (3.5-5.5); Sodium, Blood 137 mmol/L (136-145)
[2025-03-20] MEDS ORDERED: Calcium Acetate 667 MG Gel Cap PO SCH (08:30)
[2025-03-20] MEDS ORDERED: Darbepoetin Alfa in Polysorbat 25 MCG/0.42 ML Syringe SC SCH (10:00)
[2025-03-20 13:43] LABS: Hematocrit 24.3 % (33.0-51.0); Hemoglobin 8.2 g/dL (11.5-16.0)
[2025-03-20] MEDS ORDERED: NS 250 ML IV ONE (14:16)
[2025-03-20] MEDS ORDERED: Heparin Sodium 1000 Units/ML 10ML MDV ONE (14:17)
--- NOTE | 2025-03-20 14:26 | NUR ---
[facility] pt [facility]ma [facility]. care ongoing.
[2025-03-20] MEDS ORDERED: FentaNYL Citrate 50 MCG/ML 2 ML Injection ONE (14:31)
[2025-03-20] MEDS ORDERED: NS 500 ML IV ONE (14:31)
[2025-03-20] MEDS ORDERED: Midazolam HCl 1MG / ML 2ML Vial ONE (14:31)
[2025-03-20] MEDS ORDERED: Heparin Sodium 10,000 Units/ML 1ML MDV ONE (14:48)
[2025-03-20] MEDS ORDERED: CeFAZolin Sodium 2,000 MG VIAL ONE (14:55)
[2025-03-20] MEDS ORDERED: NS 50 ML IV ONE (14:55)
--- NOTE | 2025-03-20 17:02 | NUR ---
DIALYSIS PT TRANSNFERED VIA BED TO DIALYSIS. CARE ONGOING.
--- NOTE | 2025-03-20 17:27 | NUR ---
NOTE PT ALERT. TOLERATED PERMACATH PLACEMENT WELL. SHE HAD A PIECE OF PIZZA AFTER RETURNING. VSS. TRANSFER TO DIALYSIS FOR HER FIRST RUN BY BED. PT SBA AFTER PERMA CATH PLACEMENT D/T SEDATION. RIGHT CHEST WALL SITE CD&I. NO CREPITUS OR SWELLING NOTED. CARE ONGOING.
[2025-03-21] VITALS (15 sets, daily range): BP systolic 104–145; BP diastolic 59–83
[2025-03-21 05:00] LABS: BASOPHILS ABSOLUTE AUTO 0.06 K/mm3 (0.00-0.23); BASOPHILS PERCENT AUTO 1 % (0-2); EOSINOPHILS ABSOLUTE AUTO 0.60 K/mm3 (0.00-0.68); EOSINOPHILS PERCENT AUTO 7 % (0-6); Hematocrit 22.9 % (33.0-51.0); Hemoglobin 7.8 g/dL (11.5-16.0); IMMATURE GRAN ABSOLUTE AUTO 0.03 K/mm3 (0.00-0.10); IMMATURE GRAN PERCENT AUTO 0 % (0-1); LYMPHOCYTES ABSOLUTE AUTO 1.72 K/mm3 (0.84-5.20); LYMPHOCYTES PERCENT AUTO 20 % (21-46); MONOCYTES ABSOLUTE AUTO 0.91 K/mm3 (0.16-1.47); MONOCYTES PERCENT AUTO 11 % (4-13); Mean Corpuscular HGB Conc 34.1 g/dL (31.5-36.5); Mean Corpuscular Volume 90 fL (80-100); NEUTROPHILS ABSOLUTE AUTO 5.31 K/mm3 (1.96-9.15); NEUTROPHILS PERCENT AUTO 62 % (41-73); NRBC ABSOLUTE 0.00 K/mm3 (0.00-0.02); NRBC Auto 0.0 /100 WBC (0.0-0.2); Platelet Count 249 K/mm3 (150-400); RDW Coefficient Variation 13.6 % (11.7-14.2); RDW Standard Deviation 44.5 fL (35.1-46.3)
[2025-03-21 05:26] LABS: Alanine Aminotransfer (ALT/SGP 12.0 U/L (12-78); Albumin, Blood 2.3 g/dL (3.4-5.0); Albumin/Globulin Ratio 0.7 (0.8-1.8); Anion Gap 7.0 mmol/L (3-11); Aspartate Aminotrans (AST/SGOT 14.0 U/L (12-37); Bilirubin, Total 0.3 mg/dL (0.1-1.0); Blood Urea Nitrogen 29.0 mg/dL (8-24); CO2, Blood 30.0 mmol/L (21-32); Calcium, Blood 7.3 mg/dL (8.5-10.1); Chloride, Blood 104.0 mmol/L (98-108); Creatinine, Blood 5.21 mg/dL (0.40-1.00); Globulin, Blood 3.2 g/dL (2.2-4.0); Glucose, Blood 100.0 mg/dL (70-99); Potassium, Blood 3.7 mmol/L (3.5-5.5); Sodium, Blood 137.0 mmol/L (136-145); Total Protein, Blood 5.5 g/dL (6.4-8.2)
--- NOTE | 2025-03-21 06:36 | NUR ---
SHIFT SUMMARY PT RETURNED FROM DIALYSIS APPROX 1939 1.5 LITRES REMOVED. SHE HAS BEEN INDEPENDENT IN ROOM AND HAS BEEN SLEEPING THROUGH THE NIGHT. PT IS PLEASANT AND COOPERATIVE WITH CARE. DR. GRACIA STATED AFTER SOCIAL WORKERS GET PT FOLLOW-UP OUT PT APPT, SHE CAN BE DISCHARGED.
[2025-03-21] MEDS ORDERED: Magnesium Sulf 2 GM/Water 50ML 50 ML IV ONE (11:15)
--- NOTE | 2025-03-21 11:16 | NUR ---
TELE NOTIFIED THIS RN THAT PT HAD PROLONGED QTC OF .50. PT ASYMPTOMATIC. THIS RN NOTIFIED DURING AM ROUND. NEW ORDERS RECEIVED. EMAR UPDATED.
[2025-03-21] MEDS ORDERED: NS 250 ML IV PRN (11:40)
[2025-03-21 16:07] LABS: Hematocrit 26.0 % (33.0-51.0); Hemoglobin 8.7 g/dL (11.5-16.0)
[2025-03-21 16:48] LABS: HBV CORE ANTIBODIES,TOTAL Negative (Negative)
[2025-03-21 17:51] LABS: HEPATITIS B SURFACE ANTIBODY 94.08 IU/L
--- NOTE | 2025-03-21 17:58 | NUR ---
SHIFT SUMMARY PT A&OX4, VSS, AMB IND, TOLERATING PO, VOIDING, AND DENIED PAIN. PT HAD LOW HR THIS AM, COREG HELD AND PROVIDER NOTIFIED. PT HAD DIALYSIS AND TOLERATED IT WELL. THIS RN CLARIFIED COREG DOSE W/ PROVIDER AND ORDER UPDATED. D/C ONCE CHAIR TIME ESTABLISHED. NO OTHER ACUTE CHANGES. CALL LIGHT WITHIN REACH AND PT ABLE TO MAKE NEEDS KNOWN.
[2025-03-22] VITALS (18 sets, daily range): BP systolic 104–170; BP diastolic 62–103
[2025-03-22 06:03] LABS: BASOPHILS ABSOLUTE AUTO 0.04 K/mm3 (0.00-0.23); BASOPHILS PERCENT AUTO 1 % (0-2); EOSINOPHILS ABSOLUTE AUTO 0.84 K/mm3 (0.00-0.68); EOSINOPHILS PERCENT AUTO 11 % (0-6); Hematocrit 20.8 % (33.0-51.0); Hemoglobin 6.8 g/dL (11.5-16.0); IMMATURE GRAN ABSOLUTE AUTO 0.06 K/mm3 (0.00-0.10); IMMATURE GRAN PERCENT AUTO 1 % (0-1); LYMPHOCYTES ABSOLUTE AUTO 1.62 K/mm3 (0.84-5.20); LYMPHOCYTES PERCENT AUTO 21 % (21-46); MONOCYTES ABSOLUTE AUTO 0.98 K/mm3 (0.16-1.47); MONOCYTES PERCENT AUTO 13 % (4-13); Mean Corpuscular HGB Conc 32.7 g/dL (31.5-36.5); Mean Corpuscular Volume 92 fL (80-100); NEUTROPHILS ABSOLUTE AUTO 4.18 K/mm3 (1.96-9.15); NEUTROPHILS PERCENT AUTO 54 % (41-73); NRBC ABSOLUTE 0.00 K/mm3 (0.00-0.02); NRBC Auto 0.0 /100 WBC (0.0-0.2); Platelet Count 217 K/mm3 (150-400); RDW Coefficient Variation 13.8 % (11.7-14.2); RDW Standard Deviation 46.4 fL (35.1-46.3)
[2025-03-22 06:23] LABS: Magnesium, Blood 2.4 mg/dL (1.6-2.4)
[2025-03-22 06:24] LABS: Alanine Aminotransfer (ALT/SGP 8.0 U/L (12-78); Albumin, Blood 2.2 g/dL (3.4-5.0); Albumin/Globulin Ratio 0.7 (0.8-1.8); Anion Gap 7.0 mmol/L (3-11); Aspartate Aminotrans (AST/SGOT 12.0 U/L (12-37); Bilirubin, Total 0.3 mg/dL (0.1-1.0); Blood Urea Nitrogen 25.0 mg/dL (8-24); CO2, Blood 31.0 mmol/L (21-32); Calcium, Blood 7.7 mg/dL (8.5-10.1); Chloride, Blood 103.0 mmol/L (98-108); Creatinine, Blood 4.97 mg/dL (0.40-1.00); Globulin, Blood 3.0 g/dL (2.2-4.0); Glucose, Blood 107.0 mg/dL (70-99); Potassium, Blood 4.0 mmol/L (3.5-5.5); Sodium, Blood 137.0 mmol/L (136-145); Total Protein, Blood 5.2 g/dL (6.4-8.2)
--- NOTE | 2025-03-22 06:35 | NUR ---
ALERT AND ORIENTED, STABLE AND ASYMPTOMATIC ON SINUS RHYTHM TO SINUS BRADYCARDIA. ABLE TO SLEEP WELL AT NIGHT WITHOUT NOTICEABLE CONCERNS. BUT BLOODWORKS IN AM REVEAL LOW HGB AND FOR TRANSFUSION OF 1 UNIT PRBC BUT PT STILL ASYMPTOMATIC.
[2025-03-22 11:47] LABS: Hematocrit 28.0 % (33.0-51.0); Hemoglobin 9.3 g/dL (11.5-16.0)
[2025-03-22 14:34] LABS: Phosphorus, Blood 5.3 mg/dL (2.5-4.9)
--- NOTE | 2025-03-22 19:17 | NUR ---
SHIFT SUMMARY PT IS A/OX4. INDEPENDENT IN THE ROOM. PT RECIEVED 1U OF PRBC'S THIS MORNING DURING DIALYSIS. PT REPORTS NO NOTICIABLE INCREASE OR DECREASE IN BLEEDING WHEN COMPARED TO YESTERDAY. ON TELE RUNNING NORMAL SINUS RYTHYM/SINUS ROSAS. PER SECOND BALLER, THIS AFTERNOON, PT WITH SOME ST CHANGES. EKG OBTAINED AND PLACED IN CHART. PHYSICAN NOTIFIED. FAMILY AT BEDSIDE THROUGHOUT THIS SHIFT. PT IS PLEASANT AND COOPERATIVE WITH CARE AND CALLS APPROPRIATELY USING THE CALL LIGHT.
[2025-03-23] VITALS (8 sets, daily range): BP systolic 105–129; BP diastolic 60–72
--- NOTE | 2025-03-23 05:30 | NUR ---
Shift Summary No acute changes. Pt on tele monitor running SB-SR 55-65. Pt slept well t/o the night. No c/o pain or discomfort. AOx4, independent in the room.
[2025-03-23 05:43] LABS: Hematocrit 21.8 % (33.0-51.0); Hemoglobin 7.3 g/dL (11.5-16.0)
[2025-03-23 06:05] LABS: Magnesium, Blood 2.2 mg/dL (1.6-2.4)
[2025-03-23 06:06] LABS: Albumin, Blood 2.2 g/dL (3.4-5.0); Anion Gap 8 mmol/L (3-11); Blood Urea Nitrogen 20 mg/dL (8-24); CO2, Blood 32 mmol/L (21-32); Calcium, Blood 7.8 mg/dL (8.5-10.1); Chloride, Blood 98 mmol/L (98-108); Creatinine, Blood 4.89 mg/dL (0.40-1.00); Glucose, Blood 102 mg/dL (70-99); Phosphorus, Blood 5.2 mg/dL (2.5-4.9); Potassium, Blood 3.7 mmol/L (3.5-5.5); Sodium, Blood 134 mmol/L (136-145)
--- NOTE | 2025-03-23 18:30 | NUR ---
SHIFT SUMMARY PT IS A/OX4. INDEPENDENT IN THE ROOM. NO ACUTE CHANGES THROUGHOUT THIS SHIFT. PT REPORTS NO SIGNIFICANT CHANGES IN BLEEDING VOLUME WHEN COMPARED TO YESTERDAY. FAMILY AT BEDSIDE THIS AFTERNOON. PT IS PLEASANT AND COOPERATIVE WITH CARE AND CALLS APPROPRIATELY USING THE CALL LIGHT.
[2025-03-24] VITALS (20 sets, daily range): BP systolic 105–159; BP diastolic 58–88
--- NOTE | 2025-03-24 04:04 | NUR ---
NO ACUTE CHANGES DURING SHIFT. PATIEN ALERT AND ORIENTED X4, ON ROOM AIR. PATIENT UP INDEPENDENTLY IN THE ROOM. ELIQUIS HELD DUE TO HEAVY MENSTRATION-DISCUSSED WITH THE RESIDENT, DR. OSMAN. BED IN LOW POSITION WITH WHEELS LOCKED. CALL LIGHT WITHIN REACH.
[2025-03-24 05:34] LABS: Hematocrit 18.9 % (33.0-51.0); Hemoglobin 6.1 g/dL (11.5-16.0)
[2025-03-24 05:57] LABS: Magnesium, Blood 2.2 mg/dL (1.6-2.4)
[2025-03-24 05:58] LABS: Albumin, Blood 2.3 g/dL (3.4-5.0); Anion Gap 8 mmol/L (3-11); Blood Urea Nitrogen 35 mg/dL (8-24); CO2, Blood 32 mmol/L (21-32); Calcium, Blood 7.8 mg/dL (8.5-10.1); Chloride, Blood 95 mmol/L (98-108); Creatinine, Blood 5.93 mg/dL (0.40-1.00); Glucose, Blood 110 mg/dL (70-99); Phosphorus, Blood 6.0 mg/dL (2.5-4.9); Potassium, Blood 3.9 mmol/L (3.5-5.5); Sodium, Blood 131 mmol/L (136-145)
--- NOTE | 2025-03-24 06:15 | NUR ---
RN NOTIFIED DR. GRACIA OF HGB OF 6.1. PER DR. GRACIA GIVE 2 UNITS OF BLOOD DURING DYALISIS IF HOSPITALIST SEES FIT. RESIDENT WAS NO LONGER OUTSIDE MEDICAL SALES REPRESENTATIVE AT [address] WADSWORTH OF HGB AND RELAYED WHAT DR. GRACIA SAID. NO ORDERS FROM DR. WADSWORTH.
--- NOTE | 2025-03-24 07:54 | NUR ---
DR GRACIA IN ROOM. REQUEST 2 U PRBC FOR H/H 6.1. DR GAN PLACED ORDER FOR 1U PRBC. CALLED DR CHANCE. HE TO HAVE MOVE TO 2U PRBC WITH DIALYSIS
--- NOTE | 2025-03-24 14:45 | NUR ---
HELD YVES PER BLEEDING. DR WILL D/C
[2025-03-24 16:19] LABS: Hematocrit 24.3 % (33.0-51.0); Hemoglobin 8.3 g/dL (11.5-16.0)
--- NOTE | 2025-03-24 18:45 | NUR ---
pt quite pleasant today. no c/o pain. did go to dialysis and also received 2u prbc at dialysis as ordered. pt continues to be independant in room. continues on menses. dr dias verbally relayed expectes to place supervisor safety deposit consult tomorrow. no other concerns noted. bed in low position, call lite in reach. calls approp
--- NOTE | 2025-03-25 03:59 | NUR ---
SHIFT SUMMARY NO ACUTE EVENTS DURING THIS SHIFT. PT DENIES PAIN AND DISCOMFORT. PT AWAITING FOR D/C D/T MISSING HER 5 YR. OLD CHILD. VSS. PT DENIES N/V/SOB. INDEPENDENDENT WITHIN THE HOSPITAL ROOM. BED AT THE LOWEST POSITION, CALL LIGHT W/I REACH. PT IS A/O X4, ABLE TO MAKE HER NEEDS KNOWN AND COOPERATIVE WITH CARE.
[2025-03-25 04:22] VITALS: BP 111/69
[2025-03-25 05:35] LABS: Hematocrit 22.9 % (33.0-51.0); Hemoglobin 7.7 g/dL (11.5-16.0)
[2025-03-25 06:01] LABS: Albumin, Blood 2.1 g/dL (3.4-5.0); Anion Gap 8 mmol/L (3-11); Blood Urea Nitrogen 21 mg/dL (8-24); CO2, Blood 32 mmol/L (21-32); Calcium, Blood 7.8 mg/dL (8.5-10.1); Chloride, Blood 97 mmol/L (98-108); Creatinine, Blood 4.50 mg/dL (0.40-1.00); Glucose, Blood 110 mg/dL (70-99); Magnesium, Blood 2.2 mg/dL (1.6-2.4); Phosphorus, Blood 5.0 mg/dL (2.5-4.9); Potassium, Blood 3.8 mmol/L (3.5-5.5); Sodium, Blood 133 mmol/L (136-145)
[2025-03-25 07:52] VITALS: BP 116/73
--- NOTE | 2025-03-25 08:00 | NUR ---
PT PLEASANT COOP A/O. STATES FEELS LIKE TO GO HOME. HOPING FOR RELEASE SOON. STATES USED ABOUT 4 PADS R/T MENSES YESTERDAY ON DAY SHOFT. STILL HEAVY FLOW, HOWEVER STATES IS SLOWING DOWN. STATES IS HEAVIER THAN NORMAL FLOW. DOES NOT NOTICE DIFFERENCE IN FLOW BETWEEN LYING DOWN AND WALKING. DENIES LIGHT HEADEDNESS. H/R REG, NO MURMUR NOTED. PER TELE NSR/ROSAS AT 57. LUNGS CLEAR, RESP EASY, UNLABORED. R/A. BT X4 LAST BM COUPLE DAYS PER PT. VOIDS INDEPENDANTLY TO BATHROOM. DIALYSIS PERMACATH CDI. NO OTHER CONCERNS NOTED. PRESENTLY IN STREET CLOTHES IN CHAIR. BED IN LOW POSITOIN, CALL LITE IN REACH, CALLS APPROP
[2025-03-25] MEDS ORDERED: Calcium Acetate 667 MG Gel Cap PO SCH (08:30)
[2025-03-25 15:14] VITALS: BP 114/78
--- NOTE | 2025-03-25 18:20 | NUR ---
PT STATES BLEEDING REDUCED TODAY, DOWN TO 2 PADS THIS SHIFT. SPOKE TO DR GAN THIS AM IN HALLWAY. STATES PLAN WAS FOR HER TO CALL OBGYN AND DISCUSS. DR ALBERT CONSULT THIS AFT. I CALLED CONSULT. DR HICKS DID COME SEE PT THIS BETSY. PT STILL FEELS GETTING BETTER AND DESIRES TO GO HOME SOON. NO OTHER CONCERNS NOTED. BED IN LOW POSITION, CALL LITE IN REACH, CALLS APPROP
[2025-03-25 19:41] VITALS: BP 119/71
--- NOTE | 2025-03-26 02:57 | NUR ---
SHIFT SUMMARY NO ACUTE EVENTS DURING THIS SHIFT. HS BP MED HELD D/T SOFT BP. PT DID NOT REPORT #OF PADS/MENSES SHE HAD GONE THROUGH DURING HS. PT REPORTED THAT BLEEDING D/T MENSES HAVE DECREASED. RESTING W/O ACUTE DISTRESS T/O THE NIGHT. BED AT THE LOWEST POSITION, CALL LIGHT W/I REACH. PT IS AWAITING TO D/C, DEPENDING ON LABS AND HGB THIS AM. F/U APPOINTMENT WITH DR. SAMANTA HICKS AFTER DISCHARGE. WILL REPORT THIS INFO TO INCOMING SHIFT NURSE.
[2025-03-26 05:00] VITALS: BP 126/73
[2025-03-26 06:29] LABS: Hematocrit 21.8 % (33.0-51.0); Hemoglobin 7.3 g/dL (11.5-16.0)
[2025-03-26 06:56] LABS: Albumin, Blood 2.2 g/dL (3.4-5.0); Anion Gap 9 mmol/L (3-11); Blood Urea Nitrogen 38 mg/dL (8-24); CO2, Blood 29 mmol/L (21-32); Calcium, Blood 7.7 mg/dL (8.5-10.1); Chloride, Blood 98 mmol/L (98-108); Creatinine, Blood 5.17 mg/dL (0.40-1.00); Glucose, Blood 96 mg/dL (70-99); Magnesium, Blood 2.4 mg/dL (1.6-2.4); Phosphorus, Blood 5.3 mg/dL (2.5-4.9); Potassium, Blood 3.6 mmol/L (3.5-5.5); Sodium, Blood 132 mmol/L (136-145)
[2025-03-26 08:28] VITALS: BP 156/92
--- NOTE | 2025-03-26 08:51 | NUR ---
PATIENT MEDICATED PER EMAR. PATIENT IN CHAIR EATING BREAKFAST, DENIES PAIN, SOME DISCOMFORT BY NEW PORT PLACEMENT. DR GRACIA ROUNDED THIS MORNING.
[2025-03-26] MEDS ORDERED: LOSA25 PO (11:52)
[2025-03-26] MEDS ORDERED: SEVEC800 PO (11:52)
--- NOTE | 2025-03-26 13:21 | NUR ---
PATIENT DC'D TO HOME WITH FAMILY. DC INSTRUCTIONS AND EDUCATION DISCUSSED WITH PATIENT AND COPY PROVIDED. RX MEDICATIONS FAXED TO [facility]. PATIENT TO MAKE FOLLOW UP APPOINTMENTS. PATIENT DENIES ANY FURTHER QUESTIONS OR CONCERNS.
== END 2025-03-26 13:11 | disposition home or self-care (01) | DRG 674 ==
LOC: ER 11:57 → MEDS 11:58
PROVIDERS: Hospitalist; Internal Medicine Nephrology; Student in an Organized Health Care Education/Training Program; ADMIT Internal Medicine
PROC: 5A1D70Z Performance of Urinary Filtration, Intermittent, Less than 6 Hours Per Day (ICD-10-PCS; 2025-03-20)
PROC: 0JH63XZ Insertion of Tunneled Vascular Access Device into Chest Subcutaneous Tissue and Fascia, Percutaneous Approach (ICD-10-PCS; 2025-03-20)
PROC: 02HV33Z Insertion of Infusion Device into Superior Vena Cava, Percutaneous Approach (ICD-10-PCS; 2025-03-20)
PROC: 30233N1 Transfusion of Nonautologous Red Blood Cells into Peripheral Vein, Percutaneous Approach (ICD-10-PCS; principal; 2025-03-24)
DX: N17.9 Acute kidney failure, unspecified (principal); D62 Acute posthemorrhagic anemia; I13.0 Hypertensive heart and chronic kidney disease with heart failure and stage 1 through stage 4 chronic kidney disease, or unspecified chronic kidney disease; E87.1 Hypo-osmolality and hyponatremia; I50.32 Chronic diastolic (congestive) heart failure; N18.6 End stage renal disease; N92.4 Excessive bleeding in the premenopausal period; E83.39 Other disorders of phosphorus metabolism; D63.1 Anemia in chronic kidney disease; Z79.01 Long term (current) use of anticoagulants; Z79.899 Other long term (current) drug therapy; I25.2 Old myocardial infarction
CPT/HCPCS: 36415; 36430; 36558; 71045; 76830; 76856; 76937; 77001; 80053; 80069; 82607; 82728; 82746; 83540; 83550; 83735; 84100; 84703; 85014; 85018; 85025; 86704; 86850; 86900; 86901; 86923; 87340; 93005; 93010; 99152; 99153; 99284; A9270; C1750; C1769; G0378; J0690; J0881; J1644; J1938; J2250; J3010; J3475; J7030; J7040; J7050; P9016

== ENCOUNTER 2025-04-05 10:20 | Observation (INO) | payer OTHER ==
[~2025-04-05] VITALS: Ht 170.2 cm; Wt 63.5 kg
[~2025-04-05 10:20] MED LIST changes: +LOSA25 PO; +SEVEC800 PO
[2025-04-05 11:06] LABS: BASOPHILS ABSOLUTE AUTO 0.09 K/mm3 (0.00-0.23); BASOPHILS PERCENT AUTO 1 % (0-2); EOSINOPHILS ABSOLUTE AUTO 0.18 K/mm3 (0.00-0.68); EOSINOPHILS PERCENT AUTO 1 % (0-6); IMMATURE GRAN ABSOLUTE AUTO 0.06 K/mm3 (0.00-0.10); IMMATURE GRAN PERCENT AUTO 0 % (0-1); LYMPHOCYTES ABSOLUTE AUTO 1.04 K/mm3 (0.84-5.20); LYMPHOCYTES PERCENT AUTO 6 % (21-46); MONOCYTES ABSOLUTE AUTO 0.83 K/mm3 (0.16-1.47); MONOCYTES PERCENT AUTO 5 % (4-13); Mean Corpuscular HGB Conc 31.1 g/dL (31.5-36.5); Mean Corpuscular Volume 95 fL (80-100); NEUTROPHILS ABSOLUTE AUTO 14.48 K/mm3 (1.96-9.15); NEUTROPHILS PERCENT AUTO 87 % (41-73); NRBC ABSOLUTE 0.00 K/mm3 (0.00-0.02); NRBC Auto 0.0 /100 WBC (0.0-0.2); Platelet Count 428 K/mm3 (150-400); RDW Coefficient Variation 13.5 % (11.7-14.2); RDW Standard Deviation 46.7 fL (35.1-46.3)
[2025-04-05 11:08] LABS: Hematocrit 16.7 % (33.0-51.0); Hemoglobin 5.2 g/dL (11.5-16.0)
[2025-04-05 11:17] LABS: Alanine Aminotransfer (ALT/SGP 13.0 U/L (12-78); Albumin, Blood 2.9 g/dL (3.4-5.0); Albumin/Globulin Ratio 0.9 (0.8-1.8); Anion Gap 9.0 mmol/L (3-11); Aspartate Aminotrans (AST/SGOT 17.0 U/L (12-37); Bilirubin, Total 0.3 mg/dL (0.1-1.0); Blood Urea Nitrogen 32.0 mg/dL (8-24); CO2, Blood 27.0 mmol/L (21-32); Calcium, Blood 8.2 mg/dL (8.5-10.1); Chloride, Blood 106.0 mmol/L (98-108); Creatinine, Blood 5.76 mg/dL (0.40-1.00); Globulin, Blood 3.3 g/dL (2.2-4.0); Glucose, Blood 130.0 mg/dL (70-99); Potassium, Blood 4.2 mmol/L (3.5-5.5); Sodium, Blood 138.0 mmol/L (136-145); Total Protein, Blood 6.2 g/dL (6.4-8.2)
[2025-04-05 11:49] LABS: Source, Urine Clean Catch
[2025-04-05 12:12] LABS: Bilirubin, Urine Neg (Neg); Color, Urine Yellow (P-Yellow); Glucose Qualitative, Urine Neg (Neg); Ketones, Urine Neg (Neg); Leukocyte Esterase, Urine Neg (Neg); Protein, Urine 3+ (Neg); Specific Gravity, Urine 1.015 (1.003-1.022); Urobilinogen, Urine NORM (Normal)
[2025-04-05 12:21] LABS: Red Blood Cells, Urine 0-2 /hpf (0-2); White Blood Cells, Urine 0-2 /hpf (0-5)
[2025-04-05] MEDS ORDERED: NS 1,000 ML IV SCH (12:40)
[2025-04-05 20:39] VITALS: BP 160/94
[2025-04-05 21:26] VITALS: BP 157/99
--- NOTE | 2025-04-05 22:01 | NUR ---
PT ARRIVED FROM ER WITH SECOND BAG OF PRBC INFUSING. BAG FINISHED INFUSING AT 2039. VITALS TAKEN AND LUNG SOUND ASCULTATED. PT RESTING IN BED AT THIS TIME.
[2025-04-05 22:10] LABS: Hematocrit 21.1 % (33.0-51.0); Hemoglobin 6.8 g/dL (11.5-16.0)
[2025-04-05] MEDS ORDERED: NS 500 ML IV SCH (22:55)
[2025-04-06] VITALS (18 sets, daily range): BP systolic 049–191; BP diastolic 69–126
[2025-04-06] MEDS ORDERED: Darbepoetin (Pharmacy Consult) SC SCH (03:45)
[2025-04-06 04:20] LABS: Hematocrit 24.6 % (33.0-51.0); Hemoglobin 8.2 g/dL (11.5-16.0); Mean Corpuscular HGB Conc 33.3 g/dL (31.5-36.5); NRBC ABSOLUTE 0.00 K/mm3 (0.00-0.02); NRBC Auto 0.0 /100 WBC (0.0-0.2); Platelet Count 339 K/mm3 (150-400); RDW Coefficient Variation 16.7 % (11.7-14.2); RDW Standard Deviation 53.3 fL (35.1-46.3)
[2025-04-06 04:21] LABS: Mean Corpuscular Volume 88 fL (80-100)
[2025-04-06 04:46] LABS: Albumin, Blood 2.6 g/dL (3.4-5.0); Anion Gap 10 mmol/L (3-11); Blood Urea Nitrogen 32 mg/dL (8-24); CO2, Blood 22 mmol/L (21-32); Calcium, Blood 7.8 mg/dL (8.5-10.1); Chloride, Blood 108 mmol/L (98-108); Creatinine, Blood 5.59 mg/dL (0.40-1.00); Glucose, Blood 92 mg/dL (70-99); Phosphorus, Blood 5.9 mg/dL (2.5-4.9); Potassium, Blood 4.0 mmol/L (3.5-5.5); Sodium, Blood 136 mmol/L (136-145)
--- NOTE | 2025-04-06 07:49 | NUR ---
SHIFT SUMMARY PT ARRIVED FROM ER AROUND 2029. ORIENTED TO ROOM. PT Hgb CAME UP TO 6.8 AFTER TWO UNITS OF PRBC IN ER. HOSPITALIST NOTIFED AND ORDER FOR ANOTHER UNIT OF BLOOD TO BE GIVEN. PT's Hgb INCREASED TO 8.2. PT REPORTS VAGINAL BLEEDING IS DECREASING. NO C/O PAIN. REPORT GIVEN TO ONCOMING NURSE. BED IN LOWEST POSITION AND CALL LIGHT IN REACH.
[2025-04-06] MEDS ORDERED: Calcium Acetate 667 MG Gel Cap PO SCH (08:30)
--- NOTE | 2025-04-06 09:10 | NUR ---
OUT OF ROOM NOTE: PATIENT LEFT THE ROOM, TRANSPORTED VIA BED AT 0900 BY THIS RN AND RAMIN LYONS TO DIALYSIS.
[2025-04-06] MEDS ORDERED: MEDR10 PO (12:52)
--- NOTE | 2025-04-06 13:39 | NUR ---
SHIFT/DISCHARGE SUMMARY: PATIENT DENIES CP/PRESSURE, SOB, N/V AND DIZZINESS. PATIENT HYPERTENSIVE, RECEIVED BP MEDS AFTER DIALYSIS. PATIENT WAS DIALYZE TODAY c 1500 MLS NET FLUID WAS REMOVED. PATIENT EATING AND DRINKING WELL, WITHOUT ANY DIFFICULTIES. PATIENT HAS HAD NO NEW CONCERNED OR COMPLAINTS THIS SHIFT. PIV DC'D. PATIENT DISCHARGE HOME. DISCHARGE INSTRUCTIONS PACKET GIVEN TO PATIENT. PATIENT EDUCATED ON ADMITTING DX OF SEVERE ANEMIA, S/S, TX, F/U c PCP, DR. HICKS-OBMIRANDA AND DR. GRACIA-NEPHROLOGY. PATIENT VERBALIZED UNDERSTANDING AND NO FURTHER QUESTIONS. RX WAS FAXED TO PATIENT PREFERRED [facility]ARMACY[facility] IN [place]. ALL PERSONAL BELONGINGS WERE SENT c PATIENT. PATIENT DECLINED WC TRANSPORT, AND LEFT THE ROOM AT 1330 ACCOMPANIED BY HER MOM.
== END 2025-04-06 14:08 | disposition hospice, inpatient (51) ==
LOC: ER 10:20 → MEDS 10:21
PROVIDERS: Nurse Practitioner Acute Care; Physician Assistant; ADMIT Internal Medicine
DX: D62 Acute posthemorrhagic anemia (principal); N93.9 Abnormal uterine and vaginal bleeding, unspecified; I13.2 Hypertensive heart and chronic kidney disease with heart failure and with stage 5 chronic kidney disease, or end stage renal disease; N18.6 End stage renal disease; I50.32 Chronic diastolic (congestive) heart failure; D63.8 Anemia in other chronic diseases classified elsewhere; N26.1 Atrophy of kidney (terminal); I25.2 Old myocardial infarction; Z99.2 Dependence on renal dialysis; Z79.01 Long term (current) use of anticoagulants; Z79.899 Other long term (current) drug therapy; Z88.8 Allergy status to other drugs, medicaments and biological substances
CPT/HCPCS: 36415; 36430; 71046; 74177; 80053; 80069; 81001; 81025; 82272; 83735; 85014; 85018; 85025; 85027; 86850; 86900; 86901; 86923; 99285-25; A9270; G0257; G0378; J7030; J7040; P9016; Q9967